=== PATIENT | male | born 1950 | race Caucasian/White ===

== ENCOUNTER 2017-12-18 00:46 | Inpatient (IN) | payer OTHER ==
[~2017-12-18] VITALS: Ht 175.3 cm; Wt 112.0 kg
[~2017-12-18 00:46] MED LIST: AMLO10TA2 PO; APIX5TAB PO; AZIT250T89 PO; BETABLOCKER; CARV12.52 PO; CARV12.543 PO; CEFD300C37 PO; FURO-92 PO; FURO40TA6 PO; LOSA50TA6 PO; LOVA20TA2 PO; MEDROL; STATIN; [UNRECOGNIZED DRUG - REMARK]
[2017-12-18 01:29] LABS: BASOPHILS # (AUTO) 0.04 x10^3/uL (0-0.1); BASOPHILS % (AUTO) 1 % (0-1); EOSINOPHILS # (AUTO) 0.71 x10^3/uL (0-0.4); EOSINOPHILS % (AUTO) 8 % (1-7); LYMPHOCYTES # (AUTO) 0.87 x10^3/uL (1-3.4); LYMPHOCYTES % (AUTO) 10 % (22-44); MD NO; MEAN CORPUSCULAR HEMOGLOBIN 30.7 pg (27.5-34.5); MEAN CORPUSCULAR HGB CONC 32.8 g/dL (33.2-36.2); MEAN CORPUSCULAR VOLUME 93.7 fL (81-97); MEAN PLATELET VOLUME 8.4 fL (7.4-10.4); MONOCYTES # (AUTO) 0.73 x10^3/uL (0.2-0.8); MONOCYTES % (AUTO) 8 % (2-9); NEUTROPHILS % (AUTO) 74 % (42-75); PLATELET COUNT 152 x10^3/uL (130-400); RED BLOOD COUNT 6.22 x10^6/uL (4.38-5.82); RED CELL DISTRIBUTION WIDTH 15.3 % (9.4-14.8)
[2017-12-18] MEDS ORDERED: MORPHINE SULFATE 4 MG/ML, 1ML IVPush PRN (01:30)
[2017-12-18] MEDS ORDERED: ONDANSETRON 2MG/ML, 2ML IVPush ONE (01:30)
[2017-12-18] MEDS ORDERED: SODIUM CHLORIDE FLUSH 10ML SYR IVF ONE ×2 (01:30→03:00)
[2017-12-18 01:41] LABS: ALANINE AMINOTRANSFERASE 17 U/L (12-78); ALBUMIN 3.5 g/dL (3.4-5.0); ANION GAP 1 mmol/L (5-15); CALCIUM 8.3 mg/dL (8.5-10.1); CHLORIDE 107 mmol/L (98-107); CREATININE 1.89 mg/dL (0.7-1.3)
[2017-12-18 01:43] LABS: ALKALINE PHOSPHATASE 77 U/L (45-117); BILIRUBIN,TOTAL 0.4 mg/dL (0.2-1.0); TOTAL PROTEIN 7.3 g/dL (6.4-8.2)
[2017-12-18] MEDS ORDERED: ONDANSETRON 2MG/ML, 2ML ONE (01:45)
[2017-12-18] MEDS ORDERED: MORPHINE SULFATE 4 MG/ML, 1ML ONE (01:45)
[2017-12-18 02:50] LABS: MICROSCOPIC AUTO
[2017-12-18 02:57] LABS: CULTURE INDICATED? NO
[2017-12-18] MEDS ORDERED: METRONIDAZOLE PMX 500MG/100ML 100 ML IV ONE (03:00)
[2017-12-18] MEDS ORDERED: SODIUM CHLORIDE 0.9% 1,000ML IVBOLUS ONE (03:00)
[2017-12-18] MEDS ORDERED: CIPROFLOXACIN/PMX 400MG/200ML 200 ML IV ONE (03:00)
[2017-12-18] MEDS ORDERED: METRONIDAZOLE PMX 500MG/100ML 100 ML ONE (03:06)
[2017-12-18] MEDS ORDERED: PIPERACILLIN/TAZO/PMX 3.375GM 50 ML IV SCH (04:00)
[2017-12-18] MEDS ORDERED: ONDANSETRON 2MG/ML, 2ML IVPush PRN (04:00)
[2017-12-18] MEDS ORDERED: hydrALAzine 20 MG/ML, 1ML IVPush PRN (04:00)
[2017-12-18] MEDS ORDERED: ACETAMINOPHEN 325 MG TABLET PO PRN (04:00)
[2017-12-18] MEDS ORDERED: ENALAPRILAT 1.25 MG/ML, 2ML IVPush PRN (04:00)
[2017-12-18] MEDS ORDERED: LEVO50TA5 PO (04:18)
[2017-12-18 04:38] VITALS: BP 154/83
[2017-12-18] MEDS: SODIUM CHLORIDE 0.9% 1,000 ML IV SCH ×3 (05:10→20:30)
[2017-12-18 05:55] LABS: FREE T4 (FREE THYROXINE) 0.99 ng/dL (0.76-1.46); THYROID STIMULATING HORMONE 3.75 mIU/L (0.358-3.740)
[2017-12-18] MEDS: PIPERACILLIN/TAZO 3.375 GM in DEXTROSE 5% 50 ML IVPB SCH ×3 (06:18→18:26)
[2017-12-18] MEDS: LEVOTHYROXINE 100 MCG INJ IVPush SCH (07:51)
[2017-12-18] MEDS: morphine SULFATE 10 MG/ML, 1ML IVPush PRN (07:52)
[2017-12-18 08:14] VITALS: BP 145/80
[2017-12-18 14:38] VITALS: BP 130/74
[2017-12-18 19:28] VITALS: BP 136/77
[2017-12-19] MEDS: PIPERACILLIN/TAZO 3.375 GM in DEXTROSE 5% 50 ML IVPB SCH ×4 (01:08→17:39)
[2017-12-19] MEDS: SODIUM CHLORIDE 0.9% 1,000 ML IV SCH ×3 (04:19→21:48)
[2017-12-19 04:23] VITALS: BP 138/76
[2017-12-19 04:49] LABS: CULTURE INDICATED? NO; MICROSCOPIC AUTO
[2017-12-19 05:10] LABS: CHLORIDE 111 mmol/L (98-107)
[2017-12-19 05:15] LABS: BASOPHILS # (AUTO) 0.01 x10^3/uL (0-0.1); BASOPHILS % (AUTO) 0 % (0-1); EOSINOPHILS # (AUTO) 0.09 x10^3/uL (0-0.4); EOSINOPHILS % (AUTO) 1 % (1-7); LYMPHOCYTES % (AUTO) 5 % (22-44); MD NO; MEAN CORPUSCULAR HEMOGLOBIN 30.5 pg (27.5-34.5); MEAN CORPUSCULAR HGB CONC 32.5 g/dL (33.2-36.2); MEAN CORPUSCULAR VOLUME 93.6 fL (81-97); MEAN PLATELET VOLUME 9.1 fL (7.4-10.4); MONOCYTES # (AUTO) 0.89 x10^3/uL (0.2-0.8); MONOCYTES % (AUTO) 7 % (2-9); NEUTROPHILS # (AUTO) 11.26 x10^3/uL (1.8-6.8); NEUTROPHILS % (AUTO) 87 % (42-75); PLATELET COUNT 126 x10^3/uL (130-400); RED BLOOD COUNT 5.74 x10^6/uL (4.38-5.82); RED CELL DISTRIBUTION WIDTH 15.4 % (9.4-14.8)
[2017-12-19 05:22] LABS: ALANINE AMINOTRANSFERASE 11 U/L (12-78); ALBUMIN 2.8 g/dL (3.4-5.0); ALKALINE PHOSPHATASE 61 U/L (45-117); ANION GAP 1 mmol/L (5-15); CALCIUM 7.7 mg/dL (8.5-10.1); CHOL/HDL RATIO 3.5; CHOLESTEROL, TOTAL 133 mg/dL (140-239); CREATININE 1.88 mg/dL (0.7-1.3); HDL CHOL % 29 % (26-37); HDL CHOLESTEROL (DIRECT) 38 mg/dL (40-60); LDL CHOLESTEROL,CALCULATED 82 mg/dL (54-169); LDL/HDL RATIO 2.2 (0.5-3.0); TOTAL PROTEIN 6.4 g/dL (6.4-8.2); TRIGLYCERIDES 64 mg/dL (50-200); VLDL CHOLESTEROL 13 mg/dL (0-25)
[2017-12-19 08:10] VITALS: BP 147/73
[2017-12-19] MEDS: LEVOTHYROXINE 100 MCG INJ IVPush SCH (08:46)
[2017-12-19] MEDS: morphine SULFATE 10 MG/ML, 1ML IVPush PRN ×2 (12:55→21:48)
[2017-12-19 13:17] VITALS: BP 155/83
[2017-12-19 19:05] VITALS: BP 154/80
[2017-12-20] MEDS: PIPERACILLIN/TAZO 3.375 GM in DEXTROSE 5% 50 ML IVPB SCH ×4 (00:01→18:26)
[2017-12-20 01:45] VITALS: BP 150/78
[2017-12-20 05:34] LABS: BASOPHILS # (AUTO) 0.01 x10^3/uL (0-0.1); BASOPHILS % (AUTO) 0 % (0-1); EOSINOPHILS # (AUTO) 0.15 x10^3/uL (0-0.4); EOSINOPHILS % (AUTO) 2 % (1-7); LYMPHOCYTES # (AUTO) 0.61 x10^3/uL (1-3.4); LYMPHOCYTES % (AUTO) 6 % (22-44); MD NO; MEAN CORPUSCULAR HEMOGLOBIN 30.7 pg (27.5-34.5); MEAN CORPUSCULAR HGB CONC 32.2 g/dL (33.2-36.2); MEAN CORPUSCULAR VOLUME 95.4 fL (81-97); MEAN PLATELET VOLUME 9.1 fL (7.4-10.4); MONOCYTES # (AUTO) 0.66 x10^3/uL (0.2-0.8); MONOCYTES % (AUTO) 7 % (2-9); NEUTROPHILS % (AUTO) 85 % (42-75); PLATELET COUNT 116 x10^3/uL (130-400); RED BLOOD COUNT 5.75 x10^6/uL (4.38-5.82); RED CELL DISTRIBUTION WIDTH 15.1 % (9.4-14.8)
[2017-12-20 05:39] LABS: CHLORIDE 109 mmol/L (98-107)
[2017-12-20 05:53] LABS: ALANINE AMINOTRANSFERASE 10 U/L (12-78); ALBUMIN 2.7 g/dL (3.4-5.0); ALKALINE PHOSPHATASE 64 U/L (45-117); ANION GAP 7 mmol/L (5-15); BILIRUBIN,TOTAL 0.8 mg/dL (0.2-1.0); CREATININE 1.65 mg/dL (0.7-1.3); TOTAL PROTEIN 6.7 g/dL (6.4-8.2)
[2017-12-20] MEDS: SODIUM CHLORIDE 0.9% 1,000 ML IV SCH ×2 (06:14→18:28)
[2017-12-20 09:01] VITALS: BP 152/78
[2017-12-20] MEDS: LEVOTHYROXINE 100 MCG INJ IVPush SCH (09:20)
[2017-12-20 12:52] VITALS: BP 145/75
[2017-12-20] MEDS: OXYcodone IR 5MG TABLET PO PRN (18:26)
[2017-12-20 18:57] VITALS: BP 152/82
[2017-12-21] MEDS: PIPERACILLIN/TAZO 3.375 GM in DEXTROSE 5% 50 ML IVPB SCH ×4 (00:36→18:04)
[2017-12-21 02:22] VITALS: BP 171/84
[2017-12-21] MEDS: OXYcodone IR 5MG TABLET PO PRN (06:43)
[2017-12-21 07:09] VITALS: BP 144/73
[2017-12-21] MEDS: LEVOTHYROXINE 100 MCG INJ IVPush SCH (08:11)
[2017-12-21 13:35] VITALS: BP 176/85
[2017-12-21] MEDS: SODIUM CHLORIDE 0.9% 1,000 ML IV SCH (17:00)
[2017-12-21] MEDS: CARVEDILOL 6.25 MG TABLET PO SCH (18:04)
[2017-12-21 19:38] VITALS: BP 167/86
[2017-12-21] MEDS ORDERED: LOVASTATIN 20 MG TABLET PO SCH (21:00)
[2017-12-21] MEDS: AMLODIPINE 5 MG TABLET PO SCH ×2 (21:00→21:25)
[2017-12-21] MEDS ORDERED: DOXA2TAB9 PO (21:09)
[2017-12-21] MEDS ORDERED: ALLO300T PO (21:09)
[2017-12-22] MEDS: PIPERACILLIN/TAZO 3.375 GM in DEXTROSE 5% 50 ML IVPB SCH ×5 (00:15→23:53)
[2017-12-22 02:09] VITALS: BP 164/89
[2017-12-22] MEDS: OXYcodone IR 5MG TABLET PO PRN (02:23)
[2017-12-22] MEDS: CARVEDILOL 6.25 MG TABLET PO SCH ×2 (05:54→18:41)
[2017-12-22] MEDS ORDERED: LEVOTHYROXINE 100 MCG TABLET ONE (08:11)
[2017-12-22 09:10] VITALS: BP 160/90
[2017-12-22] MEDS: AMLODIPINE 5 MG TABLET PO SCH ×2 (09:59→21:27)
[2017-12-22] MEDS: LOSARTAN 50MG TABLET PO SCH (10:00)
[2017-12-22] MEDS: LEVOTHYROXINE 50 MCG TABLET PO SCH (10:03)
[2017-12-22] MEDS: SODIUM CHLORIDE 0.9% 1,000 ML IV SCH (13:36)
[2017-12-22 14:38] VITALS: BP 165/91
[2017-12-22 18:39] VITALS: BP 171/93
[2017-12-22 19:37] VITALS: BP 167/85
[2017-12-23 05:24] LABS: ANION GAP 6 mmol/L (5-15); BASOPHILS # (AUTO) 0.03 x10^3/uL (0-0.1); BASOPHILS % (AUTO) 1 % (0-1); CALCIUM 8.3 mg/dL (8.5-10.1); CHLORIDE 103 mmol/L (98-107); CREATININE 1.75 mg/dL (0.7-1.3); EOSINOPHILS # (AUTO) 0.58 x10^3/uL (0-0.4); EOSINOPHILS % (AUTO) 8 % (1-7); LYMPHOCYTES # (AUTO) 0.72 x10^3/uL (1-3.4); LYMPHOCYTES % (AUTO) 10 % (22-44); MD NO; MEAN CORPUSCULAR HEMOGLOBIN 30.7 pg (27.5-34.5); MEAN CORPUSCULAR HGB CONC 32.9 g/dL (33.2-36.2); MEAN CORPUSCULAR VOLUME 93.4 fL (81-97); MEAN PLATELET VOLUME 8.4 fL (7.4-10.4); MONOCYTES # (AUTO) 0.87 x10^3/uL (0.2-0.8); MONOCYTES % (AUTO) 12 % (2-9); NEUTROPHILS # (AUTO) 4.96 x10^3/uL (1.8-6.8); NEUTROPHILS % (AUTO) 69 % (42-75); PLATELET COUNT 141 x10^3/uL (130-400); RED BLOOD COUNT 5.89 x10^6/uL (4.38-5.82); RED CELL DISTRIBUTION WIDTH 14.3 % (9.4-14.8)
[2017-12-23 05:49] VITALS: BP 155/93
[2017-12-23] MEDS: CARVEDILOL 6.25 MG TABLET PO SCH ×2 (05:51→18:05)
[2017-12-23] MEDS: PIPERACILLIN/TAZO 3.375 GM in DEXTROSE 5% 50 ML IVPB SCH (05:51)
[2017-12-23 07:49] VITALS: BP 163/94
[2017-12-23] MEDS ORDERED: LEVOTHYROXINE 25 MCG TABLET ONE (08:53)
[2017-12-23] MEDS: DOXAZOSIN 2MG TABLET PO SCH (08:57)
[2017-12-23] MEDS: LOSARTAN 50MG TABLET PO SCH (08:58)
[2017-12-23] MEDS: ALLOPURINOL 300 MG TABLET PO SCH (08:58)
[2017-12-23] MEDS: AMLODIPINE 5 MG TABLET PO SCH ×2 (08:59→22:20)
[2017-12-23] MEDS: SODIUM CHLORIDE 0.9% 1,000 ML IV SCH (08:59)
[2017-12-23] MEDS: LEVOTHYROXINE 50 MCG TABLET PO SCH (08:59)
[2017-12-23 13:11] VITALS: BP 164/88
[2017-12-23] MEDS: PIPERACILLIN/TAZO(ZOSYN) 2.25 GM in NS 50 ML IVPB SCH ×2 (13:26→18:51)
[2017-12-23] MEDS: OXYcodone IR 5MG TABLET PO PRN (16:47)
[2017-12-23 17:56] VITALS: BP 167/96
[2017-12-23 18:45] VITALS: BP 162/89
[2017-12-24] MEDS: PIPERACILLIN/TAZO/PMX 2.25GM 50 ML IVPB SCH ×3 (01:20→13:12)
[2017-12-24 01:25] VITALS: BP 153/96
[2017-12-24] MEDS: CARVEDILOL 6.25 MG TABLET PO SCH (06:32)
[2017-12-24] MEDS: SODIUM CHLORIDE 0.9% 1,000 ML IV SCH (06:33)
[2017-12-24 07:57] VITALS: BP 150/94
[2017-12-24] MEDS ORDERED: LEVOTHYROXINE 25 MCG TABLET ONE ×2 (09:30→09:39)
[2017-12-24] MEDS: LEVOTHYROXINE 50 MCG TABLET PO SCH (09:30)
[2017-12-24] MEDS: ALLOPURINOL 300 MG TABLET PO SCH (09:32)
[2017-12-24] MEDS: AMLODIPINE 5 MG TABLET PO SCH (09:33)
[2017-12-24] MEDS: DOXAZOSIN 2MG TABLET PO SCH (09:33)
[2017-12-24] MEDS: LOSARTAN 50MG TABLET PO SCH (09:34)
[2017-12-24 12:44] VITALS: BP 143/89
[2017-12-24] MEDS ORDERED: AMOX1TAB64 PO (13:55)
== END 2017-12-24 17:22 | disposition home or self-care (01) | DRG 872 ==
LOC: ED 02:52 → EDIP 03:23 → 4NOR 04:25 → DCLOUNGE 12-24 17:00
PROVIDERS: ADMIT Internal Medicine; ATTEND Family Medicine
DX: A41.9 Sepsis, unspecified organism (principal); E44.0 Moderate protein-calorie malnutrition; K57.20 Diverticulitis of large intestine with perforation and abscess without bleeding; I13.0 Hypertensive heart and chronic kidney disease with heart failure and stage 1 through stage 4 chronic kidney disease, or unspecified chronic kidney disease; I50.42 Chronic combined systolic (congestive) and diastolic (congestive) heart failure; E78.5 Hyperlipidemia, unspecified; B95.4 Other streptococcus as the cause of diseases classified elsewhere; N18.3 Chronic kidney disease, stage 3 (moderate); E66.9 Obesity, unspecified; E03.9 Hypothyroidism, unspecified; M1A.9XX0 Chronic gout, unspecified, without tophus (tophi); N20.0 Calculus of kidney; Z68.36 Body mass index [BMI] 36.0-36.9, adult; Z82.49 Family history of ischemic heart disease and other diseases of the circulatory system; Z86.711 Personal history of pulmonary embolism; Z88.8 Allergy status to other drugs, medicaments and biological substances; Z91.018 Allergy to other foods
CPT/HCPCS: 36415; 74176; 80048; 80053; 80061; 81001; 83036; 83690; 84439; 84443; 85025; 87040; 87077; 87181; 96374; J2405; J2543; J2270; J7030

== ENCOUNTER 2018-01-28 22:04 | Emergency (ER) | payer OTHER ==
[~2018-01-28] VITALS: Ht 177.8 cm; Wt 105.6 kg
[~2018-01-28 22:04] MED LIST changes: +ALLO300T PO; +AMOX1TAB64 PO; +DOXA2TAB9 PO; +LEVO50TA5 PO
[2018-01-28 22:11] VITALS: BP 135/82
[2018-01-28] MEDS ORDERED: DIPH,PERTUSS(ACELL),TET VAC/PF 0.5 ML IM-VACC ONE ×2 (23:00→23:03)
== END 2018-01-28 23:30 | disposition home or self-care (01) ==
LOC: ED 23:16
DX: S61.451A Open bite of right hand, initial encounter (principal); I10 Essential (primary) hypertension; W54.0XXA Bitten by dog, initial encounter; Y93.89 Activity, other specified; Y92.89 Other specified places as the place of occurrence of the external cause; Y99.8 Other external cause status
CPT/HCPCS: 12002; 90471; 90715; 99283

== ENCOUNTER → 2018-02-15 | Outpatient (CLI) | payer OTHER ==
[~2018-02-15] MED LIST changes: +REGADENOSON 0.4 MG/5 ML SYRINGE ONE
== END ==
LOC: CFH 07:26
PROVIDERS: ATTEND Internal Medicine Cardiovascular Disease
DX: Z01.818 Encounter for other preprocedural examination (principal)
CPT/HCPCS: 78452; 93017; A9502; J2785

== ENCOUNTER 2019-04-20 10:31 | Outpatient (CLI) | payer MEDICARE | END 2019-04-20 23:59 | disposition home or self-care (01) | LOC: LAB 10:31 | PROVIDERS: ATTEND Specialist | DX: D75.1 Secondary polycythemia (principal) | CPT/HCPCS: 36600; 82803 ==

== ENCOUNTER → 2020-01-24 | Outpatient (CLI) | payer MEDICARE ==
[~2020-01-24] MED LIST changes: -AMLO10TA2 PO; +AMLO10TA8 PO; +LOSA50TA14 PO; -LOSA50TA6 PO; -REGADENOSON 0.4 MG/5 ML SYRINGE ONE
== END | disposition home or self-care (01) ==
LOC: CVU 12:15
PROVIDERS: ATTEND Internal Medicine Cardiovascular Disease
DX: I08.8 Other rheumatic multiple valve diseases (principal); I10 Essential (primary) hypertension
CPT/HCPCS: 93306

== ENCOUNTER → 2020-05-01 | Outpatient (CLI) | payer MEDICARE | END | disposition home or self-care (01) | LOC: CFH 09:11 | PROVIDERS: ATTEND Specialist | DX: D75.1 Secondary polycythemia (principal); N28.1 Cyst of kidney, acquired | CPT/HCPCS: 76700 ==